=== PATIENT | female | born 2000 | race Caucasian/White ===

== ENCOUNTER 2020-01-06 19:03 | Emergency (ER) | payer BC ==
[2020-01-06 19:36] VITALS: BP 128/70
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
== END 2020-01-06 21:15 | disposition home or self-care (01) ==
LOC: UCCORT 19:03
DX: S06.0X0A Concussion without loss of consciousness, initial encounter (principal); W22.8XXA Striking against or struck by other objects, initial encounter; Y92.9 Unspecified place or not applicable; Z91.013 Allergy to seafood; Z88.2 Allergy status to sulfonamides
CPT/HCPCS: 70450; 99211; G0463